=== PATIENT | male | born 1970 | race Hispanic/Latino ===

== ENCOUNTER 2019-02-05 11:43 | Emergency (ER) | payer OTHER ==
[2019-02-05] MEDS ORDERED: ONDANSETRON HCL 4 MG/2 ML VIAL ONE (12:16)
[2019-02-05 12:17] LABS: BASOPHILS % (AUTO) 0.5 % (0.0-5.0); EOSINOPHILS % (AUTO) 0.1 % (0.0-8.0); HEMATOCRIT 42.3 % (42-54); LYMPHOCYTES % (AUTO) 7.3 % (21.0-51.0); MEAN CORPUSCULAR HEMOGLOBIN 29.4 pg (27.0-33.0); MEAN CORPUSCULAR HGB CONC 33.1 g/dL (32.0-36.0); MONOCYTES % (AUTO) 4.8 % (3.0-13.0); NEUTROPHILS % (AUTO) 87.3 % (40.0-77.0); PLATELET COUNT (AUTO) 228 K/uL (130-400); RED BLOOD CELL COUNT(AUTO) 4.75 MIL/uL (4.50-6.20); RED CELL DISTRIBUTION WIDTH 13.4 % (11.0-15.5); WHITE BLOOD COUNT (AUTO) 12.7 K/uL (4.8-10.8)
[2019-02-05] MEDS ORDERED: KETOROLAC TROMETHAMINE 30MG/ML ONE (12:17)
[2019-02-05] MEDS ORDERED: MORPHINE SULFATE 4 MG/1ML SYG ONE (12:17)
[2019-02-05 12:21] LABS: APPEARANCE,URINE Clear (CLEAR); BILIRUBIN,URINE Negative (NEGATIVE); COLOR,URINE Yellow (YELLOW); GLUCOSE, URINE (UA) Negative (NEGATIVE); KETONES,URINE 15 mg/dL (NEGATIVE); LEUKOCYTE ESTERASE ,URINE Negative (NEGATIVE); NITRATE,URINE Negative (NEGATIVE); OCCULT BLOOD,URINE Trace (NEGATIVE); PROTEIN,URINE Negative (NEGATIVE)
[2019-02-05 12:23] LABS: POTASSIUM 4.1 mmol/L (3.5-5.1)
[2019-02-05 12:28] LABS: RBC,URINE 0-1 /HPF (0-1)
[2019-02-05 12:28] LABS: ALBUMIN 4.2 g/dL (3.5-5.0); BILIRUBIN,TOTAL 0.4 mg/dL (0.2-1.0); TOTAL PROTEIN, SERUM 8.3 g/dL (6.0-8.3)
[2019-02-05 12:29] LABS: BACTERIA,URINE Rare /HPF (None Seen); SQUAMOUS EPITHELIAL CELL,UR 0-2 /HPF (0-2)
[2019-02-05] MEDS ORDERED: SODIUM CHLORIDE 0.9% 500ML 500 ML IV ONE (12:34)
[2019-02-05] MEDS ORDERED: CEFTRIAXONE SODIUM 1 GM ONE (12:34)
== END 2019-02-05 13:41 | disposition home or self-care (01) ==
LOC: EDH 11:43
DX: N20.1 Calculus of ureter (principal); N39.0 Urinary tract infection, site not specified; Z87.442 Personal history of urinary calculi; Z90.49 Acquired absence of other specified parts of digestive tract
CPT/HCPCS: 36415; 74176; 80053; 81001; 85025; 96374; 96375; 99285; J0696; J1885; J2270; J2405; J7040

== ENCOUNTER 2024-11-22 14:39 | Emergency (ER) | payer SELFPAY ==
[~2024-11-22] VITALS: Ht 162.6 cm; Wt 106.6 kg
--- NOTE | 2024-11-22 14:47 | EKG ---
[facility] Test Date: 2024-11-22 Test Time: 14:40:43 Pat Name: NANCI GREENBERG Department: [facility] Room: Gender: M Research [employer]ist: [id number] : 1970 Requested By: LOAN ALONZO Order Number: [id number] Reading MD: Jeramie Wright Measurements Intervals [place] Rate: 63 P: 31 [place]: 157 QRS: 30 QRSD: 94 T: 54 QT: 385 QTc: 395 Interpretive Statements Sinus rhythm No previous ECG available for comparison Electronically Signed On 11-23-2024 15:49:17 CDT by Jeramie Wright Please click the below link to view image of tracing.
[2024-11-22 15:09] LABS: IMMATURE GRANULOCYTE ABSOLUTE 0.04 K/uL (0-1); NUCLEATED RED BLOOD CELLS 0.0 % (0.0-0.19); PLATELET COUNT (AUTO) 239 K/uL (130-400); RED BLOOD CELL COUNT(AUTO) 4.48 MIL/uL (4.50-6.20); RED CELL DISTRIBUTION WIDTH 12.5 % (11.0-15.5); WHITE BLOOD COUNT (AUTO) 7.2 K/uL (4.8-10.8)
--- NOTE | 2024-11-22 15:10 | ERN ---
General Chief Complaint: Chest Pain Stated Complaint: CP Time Seen by MD: 14:41 Time Seen by Midlevel: 14:41 Source: patient History of Present Illness Initial Comments Patient is a 54-year-old male presenting to the emergency department for evaluation of chest pain that started earlier today. Patient reports having a syncopal episode two days ago. Patient states he had gotten middle of the night restroom dizzy and passed out falling on his back. He does have bruising to his back and contusion to scalp. Denies any other symptoms on arrival Past Medical History Past Medical History: Hypertension, Other Medical History Other: VERTIGO Past Surgical History: None ROS Dictation CONSTITUTIONAL: Negative except for HPI HEAD/FACE: Negative except for HPI EENT: Negative except for HPI RESPIRATORY: Negative except for HPI GASTROINTESTINAL/ABDOMINAL: Negative except for HPI GENITOURINARY: Negative except for HPI MUSCULOSKELETAL: Negative except for HPI INTEGUMENTARY: Negative except for HPI NEUROLOGICAL/PSYCH: Negative except for HPI HEMATOLOGIC/LYMPHATIC: Negative except for HPI All Systems Negative, Except as noted above. 13 point review of systems assessed and all negative except for above. Physical Exam Physical Exam Dictation Vital Signs reviewed General Appearance: Alert, oriented x 3, no acute distress, well developed, nourished. Head and Face: non-traumatic. Eyes: PERRL, pink conjunctivas, eyelid no trauma, anterior chamber with arcus senilis. Ears: Pinnas intact and no signs of trauma or erythema ear canals clear and no discharge TM no erythema Nose: No discharge, no bleeding. Oropharynx: Mouth normal, tongue pink, pharynx clear,no erythema, tonsils no exudates, no abscesses noted, mucous membrane moist Neck: Supple, non-tender, no thyromegaly, no masses, no JVD, no bruits Breast:Deferred Chest:No tenderness, no crepitus, no paradoxical movement, no retractions Lungs:Clear, well-ventilated, symmetric, no rales, no wheezing, no rhonchi, no stridor, good breath sounds bilaterally Heart: Regular rate, regular rhythm, no murmur, no gallops Vascular: no peripheral edema, Abdomen: Soft, positive bowel sounds, nondistended, no guarding, nontender, no rebound, no masses no hepatomegaly, no splenomegaly, no Webb's sign, no hernias. Rectal: Deferred Genital: Deferred Neurological: Normal speech, motor function intact, sensory function intact Musculoskeletal: Neck nontender, full range of motion, back nontender, full range of motion, Extremities: nontender, full range of motion Skin: Color pink, dry, no turgor, no rash, no lacerations, no abrasions, no contusions. Lymphatic: Deferred Results Laboratory and Microbiology Lab and Micro Result Laboratory Tests Test 11/22/24 15:00 11/22/24 16:48 White Blood Count 7.2 K/uL (4.8-10.8) Red Blood Count 4.48 MIL/uL (4.50-6.20) L Hemoglobin 13.3 g/dL (14.0-18.0) L Hematocrit 40.0 % (42-54) L Mean Corpuscular Volume 89.3 fL (79-99) Mean Corpuscular Hemoglobin 29.7 pg (27.0-33.0) Mean Corpuscular Hemoglobin Concent 33.3 g/dL (32.0-36.0) Red Cell Distribution Width 12.5 % (11.0-15.5) Platelet Count 239 K/uL (130-400) Mean Platelet Volume 11.3 fL (7.5-10.5) H Immature Granulocyte % (Auto) 0.6 % (0-1) Neutrophils (%) (Auto) 46.2 % (40.0-77.0) Lymphocytes (%) (Auto) 36.6 % (21.0-51.0) Monocytes (%) (Auto) 11.1 % (3.0-13.0) Eosinophils (%) (Auto) 4.7 % (0.0-8.0) Basophils (%) (Auto) 0.8 % (0.0-5.0) Neutrophils # (Auto) 3.3 K/uL (1.8-7.7) Lymphocytes # (Auto) 2.6 K/uL (1.0-4.8) Monocytes # (Auto) 0.8 K/uL (0.1-1.0) Eosinophils # (Auto) 0.34 K/uL (0.00-0.70) Basophils # (Auto) 0.06 K/uL (0.00-0.20) Absolute Immature Granulocyte (auto 0.04 K/uL (0-1) Nucleated Red Blood Cells 0.0 % (0.0-0.19) Sodium Level 140 mmol/L (136-145) Potassium Level 3.8 mmol/L (3.5-5.1) Chloride Level 105 mmol/L (101-111) Carbon Dioxide Level 30 mmol/L (21-32) Blood Urea Nitrogen 12 mg/dL (7-18) Creatinine 0.8 mg/dL (0.5-1.3) Glomerular Filtration Rate Calc 106 mL/min (>90) Random Glucose 118 mg/dL (70-105) H Total Calcium 8.9 mg/dL (8.5-10.1) Magnesium Level 2.10 mg/dL (1.80-2.40) Total Creatine Kinase 164 U/L (21-232) Troponin I High Sensitivity 6 ng/L (4-75) 6 ng/L (4-75) B-Type Natriuretic Peptide 55 pg/mL (0-100) Labs Reviewed?: Yes MDM MDM: Differential diagnosis: Acute coronary syndrome, bleed, dehydration, electrolyte abnormality There are no social concerns with this patient. Prescription drug management Prescriptions will include: None Medical management and examination interpretation discussions were had by me with other qualified healthcare professionals as indicated for the patient's care. ED Course Orders Procedure Category Date Status Time 12 Lead Ekg Tracing- EKG 11/22/24 Complete Technical 14:41 Cbc With Differential LAB 11/22/24 Complete 14:41 Basic Metabolic Panel LAB 11/22/24 Complete 14:41 B-Type Natriuretic LAB 11/22/24 Complete Peptide 14:41 Magnesium LAB 11/22/24 Complete 14:41 Creatine Kinase, Total LAB 11/22/24 Complete 14:41 Troponin I High LAB 11/22/24 Complete Sensitivity 14:41 Chest 1vw RAD 11/22/24 Resulted 14:41 Ct Cervical Spine W/O CT 11/22/24 Resulted Contrast 14:50 Ct Head/Brain W/O CT 11/22/24 Resulted Contrast 14:50 Troponin I High LAB 11/22/24 Complete Sensitivity 15:49 Vital Signs Date Time Temp Pulse Resp B/P (MAP) Pulse Ox O2 Delivery O2 Flow Rate FiO2 11/22/24 14:41 98.4 64 18 155/86 98 Room Air 0 [facility] [address] [place] [id number] IMAGING REPORT Signed PATIENT: NANCI GREENBERG MR#: [id number] : 1970 SEX: M AGE: 54 LOCATION: ED ORDER 50 STATUS: REG [facility] REPORT#: [id number] SERVICE 49 REASON: syncope ORDERING PHYSICIAN: LOAN ALONZO PROCEDURE: HEAD WO - CT HEAD/BRAIN W/O CONTRAST EXAM: CT Head Without IV contrast. CLINICAL HISTORY: syncope TECHNIQUE: Axial computed tomography images of the head/brain without intravenous contrast. COMPARISON: None provided. FINDINGS: BRAIN: No evidence of acute hemorrhage. No mass lesion. No CT evidence for acute territorial infarct. No midline shift or extra-axial collections. VENTRICLES: No hydrocephalus. ORBITS: The orbits are unremarkable. SINUSES AND MASTOIDS: The paranasal sinuses and mastoid air cells are clear. BONES: No fracture. SOFT TISSUES: Unremarkable. IMPRESSION: No acute intracranial abnormality. /[place] DICTATED BY: PEDRO KELLER MD DATE: 11/22/241645 ELECTRONICALLY SIGNED BY: PEDRO KELLER MD DATE: 11/22/241645 [address] [address] IMAGING REPORT Signed PATIENT: NANCI GREENBERG MR#: [id number] : 1970 SEX: M AGE: 54 LOCATION: ED ORDER 50 STATUS: REG ER REPORT#: [id number] SERVICE 49 REASON: syncope ORDERING PHYSICIAN: LOAN ALONZO PROCEDURE: C SPIN WO - CT CERVICAL SPINE W/O CONTRAST EXAM: CT Cervical Spine Without IV contrast. CLINICAL HISTORY: syncope TECHNIQUE: Axial computed tomography images of the cervical spine without intravenous contrast. Sagittal and coronal reformatted images were generated. COMPARISON: None provided. FINDINGS: ALIGNMENT: Straightening of the cervical spine which may be due to paraspinal muscle spasm. No dislocation. DEGENERATIVE CHANGES: Mild multilevel degenerative change. SOFT TISSUES: The prevertebral soft tissues are within normal limits. BONES: No fracture or dislocation in the cervical spine. IMPRESSION: 1. No fracture or dislocation in the cervical spine. 2. Straightening of the cervical spine which may be due to paraspinal muscle spasm. 3. Mild multilevel degenerative change. /[place] DICTATED BY: PEDRO KELLER MD DATE: 11/22/241650 ELECTRONICALLY SIGNED BY: PEDRO KELLER MD DATE: 11/22/241650 . [place] [id number] IMAGING REPORT Signed PATIENT: NANCI GREENBERG MR#: [id number] : 1970 SEX: M AGE: 54 LOCATION: EDH ORDER 42 STATUS: REG ER REPORT#: [id number] SERVICE 144 REASON: cp ORDERING PHYSICIAN: LOAN ALONZO PROCEDURE: CXR1VW - CHEST 1VW EXAM: CR Chest, 1 View. CLINICAL HISTORY: cp COMPARISON: None provided. FINDINGS: LUNGS: There is no mass, infiltrate, or acute pulmonary abnormality. PLEURAL SPACES: No pleural effusion or pneumothorax. MEDIASTINUM: The cardiomediastinal silhouette is within normal limits. BONES: No acute osseous abnormality. IMPRESSION: No acute cardiopulmonary pathology is evident. /[place] DICTATED BY: DANNI ESPINAL Jr., MD DATE: 11/22/241633 ELECTRONICALLY SIGNED BY: DANNI ESPINAL Jr., MD DATE: 11/22/241633 HEART Score Response (Comments) Value History: Low suspicion (0) 0 EKG: Normal 0 Age: < 45yrs (0) 0 Risk Factors: No known risk factors (0) 0 Initial Troponin: Normal limit (0) 0 HEART Score Risk: Low Risk for MACE (1-3) Total 0 DX & DISP Disposition: Discharge Departure Impression: Primary Impression: Non-cardiac chest pain Condition: Stable Additional Instructions: Today you were evaluated for a syncopal episode (fainting) that occurred two days ago, as well as your current chest pressure/pain. We performed a full evaluation to check for serious causes. Your blood work today is unremarkable. There are no signs of infection. Your white blood cell count was normal. You are not anemic. Your kidney function is normal. Your electrolytes are normal. Your CT scan of the head and neck are normal. Your chest x-ray is normal. Your two sets cardiac enzymes are negative. At this time there was no evidence of a heart attack, stroke, bleeding, or other emergent condition. However because you did experience a true syncopal episode nurse the having symptoms it is important to have further outpatient evaluation. Follow up with your primary care provider within the next week. Return to the emergency department if you develop worsening chest pain, shortness of breath, another fainting episode, or severe headache vision changes Referrals: SELF,REFERRAL (PCP) Time of Disposition: 17:24 I have reviewed the case, and I agree with, Diagnosis and Plan I performed the substantive portion of the visit. I have reviewed and personally made and approve the management plan that is documented in the note by myself or the GENIE. I acknowledge for responsibility for the patient's management plan. LOAN ALONZO Nov 22, 2024 15:10
[2024-11-22 15:18] LABS: CREATININE 0.8 mg/dL (0.5-1.3); GLOMERULAR FILTR. RATE CALC 106.0 mL/min (>90); GLUCOSE,RANDOM 118.0 mg/dL (70-105); SODIUM SERUM 140.0 mmol/L (136-145); UREA NITROGEN, BLOOD 12.0 mg/dL (7-18)
[2024-11-22 15:23] LABS: CREATINE KINASE, TOTAL 164.0 U/L (21-232)
--- NOTE | 2024-11-22 15:36 | HMCIMG ---
EXAM: CR Chest, 1 View. CLINICAL HISTORY: cp COMPARISON: None provided. FINDINGS: LUNGS: There is no mass, infiltrate, or acute pulmonary abnormality. PLEURAL SPACES: No pleural effusion or pneumothorax. MEDIASTINUM: The cardiomediastinal silhouette is within normal limits. BONES: No acute osseous abnormality. IMPRESSION: No acute cardiopulmonary pathology is evident. /[place]
--- NOTE | 2024-11-22 15:47 | HMCIMG ---
EXAM: CT Head Without IV contrast. CLINICAL HISTORY: syncope TECHNIQUE: Axial computed tomography images of the head/brain without intravenous contrast. COMPARISON: None provided. FINDINGS: BRAIN: No evidence of acute hemorrhage. No mass lesion. No CT evidence for acute territorial infarct. No midline shift or extra-axial collections. VENTRICLES: No hydrocephalus. ORBITS: The orbits are unremarkable. SINUSES AND MASTOIDS: The paranasal sinuses and mastoid air cells are clear. BONES: No fracture. SOFT TISSUES: Unremarkable. IMPRESSION: No acute intracranial abnormality. /[place]
--- NOTE | 2024-11-22 15:52 | HMCIMG ---
EXAM: CT Cervical Spine Without IV contrast. CLINICAL HISTORY: syncope TECHNIQUE: Axial computed tomography images of the cervical spine without intravenous contrast. Sagittal and coronal reformatted images were generated. COMPARISON: None provided. FINDINGS: ALIGNMENT: Straightening of the cervical spine which may be due to paraspinal muscle spasm. No dislocation. DEGENERATIVE CHANGES: Mild multilevel degenerative change. SOFT TISSUES: The prevertebral soft tissues are within normal limits. BONES: No fracture or dislocation in the cervical spine. IMPRESSION: 1. No fracture or dislocation in the cervical spine. 2. Straightening of the cervical spine which may be due to paraspinal muscle spasm. 3. Mild multilevel degenerative change. /[place]
[2024-11-22 17:48] VITALS: BP 146/82; PULSE 68; RESP 16; TEMP 98.2; O2SAT 99
== END 2024-11-22 17:48 | disposition home or self-care (01) ==
LOC: EDH 14:39
DX: R07.89 Other chest pain (principal); I10 Essential (primary) hypertension
CPT/HCPCS: 36415; 70450; 71045; 72125; 80048; 82550; 83735; 83880; 84484; 85025; 93005; 99285